=== PATIENT | female | born 1995 | race Caucasian/White ===

== ENCOUNTER 2016-10-06 13:53 | Emergency (ER) | payer BC ==
[2016-10-06 14:22] VITALS: BP 96/57
--- NOTE | 2016-10-06 15:09 | UC ---
Back Pain HPI - HPI Summary HPI Summary: 20 yo female with the onset today of left sided back pain and frequency and urgency of urination states this is how a prior kidney infection started no f/c no n/v no abd pain or pelvic pain no vag d/c or itch - History of Current Complaint Chief Complaint: UCGU Stated Complaint: BACK PAIN Time Seen by Provider: 10/06/16 14:54 Hx Obtained From: Patient Hx Last Menstrual Period: Depo-SHot Onset/Duration: Gradual Onset, Lasting Hours Timing: Constant Severity Initially: Moderate Severity Currently: Moderate Pain Intensity: 4 Pain Scale Used: 0-10 Numeric Back Pain: Is Discrete @ - left mid back Character: Dull, Aching Aggravating: Nothing Associated Signs And Symptoms: Negative: Swelling, Redness, Bruising, Fever, Weakness, Numbness, Tingling, Abdominal Pain, Flank Pain, Bladder Incontinence, Bowel Incontinence, Weight Loss, Pain with Weight Bearing - Allergies/Home Medications Allergies/Adverse Reactions: Allergies Allergy/AdvReac Type Severity Reaction Status Date / Time Lactose Intolerance (GI) Allergy GI Upset Verified 10/06/16 14:16 Home Medications: Home Medications Ibuprofen [Advil] 400 mg PO Q8HR PRN 10/06/16 [History Confirmed 10/06/16] medroxyPROGESTERone ACETATE* [DEPO-Provera*] 1 vial IM SEE INSTRUCTIONS [History Confirmed 10/06/16] PMH/Surg Hx/FS Hx/Imm Hx Previously Healthy: Yes - hx pyelo - Surgical History Surgical History: Yes Surgery Procedure, Year, and Place: Right hand surgery - Family History Known Family History: Positive: Hypertension, Other - no fhx of kidney stones Negative: Cardiac Disease, Diabetes - Social History Alcohol Use: None Substance Use Type: None Smoking Status (MU): Never Smoked Tobacco Review of Systems Constitutional: Negative Skin: Negative Eyes: Negative ENT: Negative Respiratory: Negative Cardiovascular: Negative Gastrointestinal: Negative Genitourinary: Frequency, Urgency Motor: Negative Neurovascular: Negative Musculoskeletal: Negative Neurological: Negative Psychological: Negative All Other Systems Reviewed And Are Negative: Yes Physical Exam Triage Information Reviewed: Yes Appearance: Well-Appearing, No Pain Distress, Well-Nourished Vital Signs: Initial Vital Signs Temp 98.4 F 10/06/16 14:18 Pulse 82 10/06/16 14:18 Resp 14 10/06/16 14:18 BP 96/57 10/06/16 14:18 Pulse Ox 100 10/06/16 14:18 Vital Signs Reviewed: Yes Eyes: Positive: Conjunctiva Clear ENT: Positive: Hearing grossly normal. Negative: Nasal congestion, Nasal drainage, Trismus, Muffled/hoarse voice Neck exam: Normal Neck: Positive: Supple, Nontender, No Lymphadenopathy Respiratory: Positive: Lungs clear, Normal breath sounds, No respiratory distress Cardiovascular: Positive: RRR, No Murmur Abdomen Description: Positive: Nontender, No Organomegaly, CVA Tenderness (L). Negative: CVA Tenderness (R), Distended, Guarding, Hepatomegaly, Peritoneal Signs, Pulsatile Mass, Splenomegaly Musculoskeletal: Positive: ROM Intact, No Edema Neurological: Positive: Alert Psychological Exam: Normal Skin Exam: Normal Back Pain Course/Dx - Differential Dx/Diagnosis Provider Diagnoses: back pain of uncertain cause. hx pyelo Discharge - Discharge Plan Condition: Stable Disposition: HOME Prescriptions: Cephalexin CAP* [Keflex CAP*] 500 mg PO BID #[id number] cap Patient Education Materials: Back Pain (ED) Referrals: Non Staff,Doctor [Primary Care Provider] - Additional Instructions: your urine looked clear because of your history of a kidney infection we will start antibiotics a urine culture is pending if not better in 3 days get rechecked tylenol or advil for pain the urine culture will take 2-3 days to come back if negative you may stop the antibiotics recheck for fever/increased pain/vomiting
== END 2016-10-06 15:17 | disposition home or self-care (01) ==
LOC: UCCORT 13:53
DX: M54.9 Dorsalgia, unspecified (principal); R35.0 Frequency of micturition; R39.15 Urgency of urination
CPT/HCPCS: 81003; 87086; 99202; G0463